=== PATIENT | male | born 1995 | race African-American/Black ===

== ENCOUNTER 2017-05-11 19:17 | Emergency (ER) | payer OTHER ==
[~2017-05-11] VITALS: Ht 170.2 cm; Wt 77.1 kg
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
== END 2017-05-11 21:10 | disposition home or self-care (01) ==
LOC: CED 19:17 → CFTX 19:17
DX: S46.912A Strain of unspecified muscle, fascia and tendon at shoulder and upper arm level, left arm, initial encounter (principal); I10 Essential (primary) hypertension; Z98.890 Other specified postprocedural states; V43.62XA Car passenger injured in collision with other type car in traffic accident, initial encounter; Y92.410 Unspecified street and highway as the place of occurrence of the external cause
CPT/HCPCS: 73030; 99283